=== PATIENT | female | born 1970 | race Caucasian/White ===

== ENCOUNTER 2018-04-05 21:14 | Emergency (ER) | payer MEDICAID ==
[~2018-04-05] VITALS: Ht 162.6 cm; Wt 81.6 kg
[2018-04-05] MEDS ORDERED: ONDANSETRON 4 MG TAB.RAPDIS SL ONE (22:30)
[2018-04-05 22:55] VITALS: BP 126/68
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
[2018-04-05] MEDS ORDERED: DIAZEPAM 5 MG TABLET PO ONE (23:30)
[2018-04-05] MEDS ORDERED: IBUPROFEN 400 MG TABLET PO ONE (23:30)
[2018-04-05] MEDS ORDERED: DIAZEPAM 5 MG TABLET ONE (23:52)
[2018-04-05] MEDS ORDERED: IBUPROFEN 400 MG TABLET ONE (23:53)
== END 2018-04-06 00:59 | disposition home or self-care (01) ==
LOC: ER 21:14
DX: S13.9XXA Sprain of joints and ligaments of unspecified parts of neck, initial encounter (principal); S39.012A Strain of muscle, fascia and tendon of lower back, initial encounter; V29.60XA Unspecified motorcycle rider injured in collision with unspecified motor vehicles in traffic accident, initial encounter; Y93.89 Activity, other specified; Y92.488 Other paved roadways as the place of occurrence of the external cause; Y99.8 Other external cause status
CPT/HCPCS: 72050-TC; A4606; Z7610